=== PATIENT | female | born 1985 | race Native Hawaiian/Other Pacific Islander ===

== ENCOUNTER 2016-11-30 16:01 | Emergency (ER) | payer OTHER ==
--- NOTE | 2016-11-30 18:01 | C.PDOC ---
History Of Present Illness The patient, a 31 y/o female who recently underwent delivery at [facility] around 5 days ago, presents to the ED for evaluation of a rash to her bilateral arms and trunk region which was noted shortly after the delivery. Patient describes the rash as red bumps that are itchy and raised. Patient was discharged from [facility] with Rx for rash cream and Benadryl. Patient states she took the Benadryl once but then discontinued use because it was making her drowsy. Patient has continued applying cream to the affected areas without improvement. She notes she was placed on multiple medications (names unknown) during her stay in the hospital. Patient notes she has continued . She denies fever, chills, throat swelling sensation, shortness of breath, recent use of new products. Time Seen by Provider: 11/30/16 16:39 Chief Complaint (Nursing): Allergic Reaction History Per: Patient History/Exam Limitations: no limitations Onset/Duration Of Symptoms: Days (5) Current Symptoms Are (Timing): Still Present Possible Cause: Unknown Associated Symptoms: Skin Rash, Itching, Redness. denies: Dyspnea, Trouble Swallowing Home/EMS Treatment: Benadryl Additional History Per: Patient Past Medical History Reviewed: Historical Data, Nursing Documentation, Vital Signs Vital Signs: Last Vital Signs Temp 97.9 F 11/30/16 18:10 Pulse 81 11/30/16 18:10 Resp 18 11/30/16 18:10 BP 105/69 11/30/16 18:10 Pulse Ox 98 11/30/16 18:34 - Medical History PMH: No Chronic Diseases Surgical History: No Surg Hx Family History: States: Unknown Family Hx - Social History Hx Alcohol Use: No Hx Substance Use: No Review Of Systems Except As Marked, All Systems Reviewed And Found Negative. Constitutional: Negative for: Fever, Chills ENT: Negative for: Throat Swelling Respiratory: Negative for: Cough, Shortness of Breath Skin: Positive for: Rash (itchy, red, raised ) Physical Exam - Physical Exam Appears: Non-toxic, No Acute Distress Skin: Rash (diffuse, macular ) Head: Atraumatic, Normacephalic Eye(s): bilateral: Normal Inspection Oral Mucosa: Moist Neck: Normal ROM, Supple Chest: Symmetrical, No Deformity, No Tenderness Cardiovascular: Rhythm Regular, No Murmur Respiratory: Normal Breath Sounds, No Rales, No Rhonchi, No Wheezing Back: Normal Inspection Extremity: Normal ROM, Capillary Refill (less than 2 seconds ) Neurological/Psych: Oriented x3, Normal Speech, Normal Cognition Gait: Steady ED Course And Treatment O2 Sat by Pulse Oximetry: 98 Medical Decision Making Medical Decision Making: Plan: * Benadryl PO * Pepcid PO * Prednisone PO * reassess and disposition Progress: Pt received Benadryl PO, Pepcid PO, and Prednisone PO. On reassessment, patient is resting comfortably with no signs of respiratory distress, and reports an improvement in her symptoms. Patient is stable for discharge and is advised to f /u with her PMD within 1-2 days for further evaluation. Disposition Counseled Patient/Family Regarding: Need For Followup - Disposition Referrals: Herbert Dawkins MD [Medical Doctor] - Disposition: HOME/ ROUTINE Disposition Time: 18:01 Condition: GOOD Prescriptions: Famotidine [Pepcid] 1 tab PO BID #20 tab Methylprednisolone [Medrol Dose Pack (21 tabs)] 1 kit PO . DIRECTED #21 packet Stavudine [Zerit] 1 tab PO BID #15 cap Instructions: Urticaria (ED) - Clinical Impression Clinical Impression: Allergic urticaria
[2016-11-30 18:11] VITALS: BP 105/69; PULSE 81; RESP 18; TEMP 97.9
[2016-11-30 18:15] VITALS: O2SAT 98
== END 2016-11-30 18:12 | disposition home or self-care (01) ==
LOC: C.ER 16:01
DX: L50.0 Allergic urticaria (principal)